=== PATIENT | female | born 1995 | race Caucasian/White ===

== ENCOUNTER → 2018-02-13 | Outpatient (CLI) | payer MEDICARE, MEDICAID ==
[~2018-02-13] MED LIST: COMBIVENT INH14.7 GM; METAMUCIL1 PDR PO; METAMUCIL3.4 GM/DOS; MOTRIN 600600 MG/TAB PO; PROBIOTIC FORMU1 CAP PO; SEASONALE 30 MC1 TAB PO; STRATTERA 25MG25 MG PO; VENTOLIN0.09 MG
== END ==
LOC: SUN.DIA 09:55
DX: O24.419 Gestational diabetes mellitus in pregnancy, unspecified control (principal); Z33.3 Pregnant state, gestational carrier
CPT/HCPCS: G0108

== ENCOUNTER → 2018-03-26 | Outpatient (CLI) | payer MEDICARE, MEDICAID | LOC: SUN.DIA 03-19 15:55 | DX: O24.419 Gestational diabetes mellitus in pregnancy, unspecified control (principal) | CPT/HCPCS: G0108 ==

== ENCOUNTER → 2018-04-09 | Outpatient (CLI) | payer MEDICARE, MEDICAID | LOC: SUN.DIA 13:21 | DX: O24.419 Gestational diabetes mellitus in pregnancy, unspecified control (principal) | CPT/HCPCS: G0108 ==

== ENCOUNTER 2018-04-19 13:05 | Inpatient (IN) | payer MEDICARE, MEDICAID | END 2018-04-22 14:20 | disposition home or self-care (01) | DRG 786 | LOC: LDR 13:05 → LDRO 15:36 → LDR 15:46 → OB 17:30 | PROVIDERS: ADMIT Obstetrics & Gynecology | PROC: 10D00Z1 Extraction of Products of Conception, Low, Open Approach (ICD-10-PCS; principal; 2018-04-19) | DX: O32.1XX0 Maternal care for breech presentation, not applicable or unspecified (principal); P27.1 Bronchopulmonary dysplasia originating in the perinatal period; Z3A.38 38 weeks gestation of pregnancy; Z37.0 Single live birth; O24.420 Gestational diabetes mellitus in childbirth, diet controlled; O69.81X0 Labor and delivery complicated by cord around neck, without compression, not applicable or unspecified; O75.89 Other specified complications of labor and delivery; F90.9 Attention-deficit hyperactivity disorder, unspecified type; M79.7 Fibromyalgia; J45.909 Unspecified asthma, uncomplicated; K58.9 Irritable bowel syndrome, unspecified; Z88.0 Allergy status to penicillin; O99.824 Streptococcus B carrier state complicating childbirth ==

== ENCOUNTER 2023-02-25 08:20 | Emergency (ER) | payer MEDICARE, MEDICAID ==
[~2023-02-25] VITALS: Ht 167.6 cm; Wt 54.5 kg
[~2023-02-25 08:20] MED LIST changes: +B-12 100 MCG; +CALCIUM CARBON650 M2; +FIBER GUMMIES2.5 GM PO; +IBU600 MG PO; +PERCOCET 325 MG1 TA2 PO; +PRENATAL MVI; +VTAMINC250TA
[2023-02-25 08:25] VITALS: TEMP 98.2
[2023-02-25 08:59] LABS: BASO % 0.3 % (0.0-2.0); EOS % 0.4 % (0.0-4.0); GRAN # 7.9 K/mm3 (1.4-6.5); GRAN % 71.9 % (42.2-75.2); HEMATOCRIT 40.7 % (37.0-47.0); HEMOGLOBIN 13.9 g/dl (12.5-16.0); LYMPH # 1.8 K/mm3 (1.2-3.4); LYMPH % 16.4 % (20.0-51.0); MEAN CELL VOLUME 92 fl (80.0-100.0); MEAN CORPUSCULAR HEMOGLOBIN 31 pg (27-31); MEAN CORPUSCULAR HGB CONC 34 g/dl (33.0-37.0); MEAN PLATELET VOLUME 10.2 fl (7.4-10.4); MONO # 1.2 K/mm3 (0.1-0.6); MONO % 10.7 % (1.7-9.3); PLATELET COUNT 245 K/mm3 (130-400); RED BLOOD COUNT 4.45 M/mm3 (4.10-5.30); REDCELL DISTRIBUTION WIDTH-CV 11.6 % (11.5-14.5)
[2023-02-25 09:02] LABS: ALBUMIN 4.2 gm/dL (3.5-5.0); BILIRUBIN,TOTAL 1.5 mg/dL (0.2-1.2); CALCIUM 10.4 mg/dL (8.4-10.2); CREATININE, serum 0.88 mg/dL (0.57-1.11); POTASSIUM 3.6 mmol/L (3.5-4.5); TOTAL PROTEIN 7.8 gm/dL (6.2-8.1)
[2023-02-25] MEDS ORDERED: CIPRO 500MG TA500 MG PO (10:23)
[2023-02-25] MEDS ORDERED: FLAGYL500 MG PO (10:23)
[2023-02-25 10:35] VITALS: BP 110/70; PULSE 98
== END 2023-02-25 10:42 | disposition home or self-care (01) ==
LOC: COL.ER 08:20
PROVIDERS: Personal Emergency Response Attendant
DX: K52.9 Noninfective gastroenteritis and colitis, unspecified (principal); Z91.040 Latex allergy status
CPT/HCPCS: J7030; Q9967